=== PATIENT | male | born 1965 | race Caucasian/White ===

== ENCOUNTER 2018-02-18 11:19 | Emergency (ER) | payer MEDICAID, OTHER, SELFPAY ==
[~2018-02-18] VITALS: Ht 170.2 cm; Wt 144.0 kg
[2018-02-18 11:21] VITALS: BP 123/81
== END 2018-02-18 11:52 | disposition home or self-care (01) ==
LOC: ED 11:33
DX: K08.89 Other specified disorders of teeth and supporting structures (principal); F17.200 Nicotine dependence, unspecified, uncomplicated
CPT/HCPCS: 99283

== ENCOUNTER 2018-11-22 22:25 | Emergency (ER) | payer SELFPAY ==
[~2018-11-22] VITALS: Ht 170.2 cm; Wt 65.9 kg
[2018-11-22 23:38] VITALS: BP 135/96
== END 2018-11-22 23:40 | disposition home or self-care (01) ==
LOC: ED 23:26
DX: A51.0 Primary genital syphilis (principal); F17.210 Nicotine dependence, cigarettes, uncomplicated
CPT/HCPCS: 36415; 86592; 96372; 99283; J0561

== ENCOUNTER 2018-11-24 22:12 | Emergency (ER) | payer SELFPAY ==
[~2018-11-24] VITALS: Ht 170.2 cm; Wt 64.5 kg
[2018-11-24 22:13] VITALS: BP 124/90
== END 2018-11-24 22:27 | disposition left against medical advice (07) ==
LOC: ED 22:20
DX: Z53.21 Procedure and treatment not carried out due to patient leaving prior to being seen by health care provider (principal)

== ENCOUNTER 2018-11-25 22:43 | Emergency (ER) | payer SELFPAY ==
[~2018-11-25] VITALS: Ht 172.7 cm; Wt 61.6 kg
[2018-11-25 22:50] VITALS: BP 114/68
== END 2018-11-25 23:27 | disposition home or self-care (01) ==
LOC: ED 23:00
DX: A57 Chancroid (principal)
CPT/HCPCS: 96372; 99283; J0696

== ENCOUNTER 2019-06-20 20:18 | Emergency (ER) | payer SELFPAY ==
[~2019-06-20] VITALS: Ht 170.2 cm; Wt 65.2 kg
[2019-06-20 20:37] VITALS: BP 114/75
[2019-06-20] MEDS ORDERED: HYDROcodone/APAP 5/325 TABLET PO ONE (21:00)
[2019-06-20] MEDS ORDERED: HYDROcodone/APAP 5/325 TABLET ONE (21:04)
== END 2019-06-20 21:17 | disposition home or self-care (01) ==
LOC: ED 21:00
DX: G89.11 Acute pain due to trauma (principal); K08.89 Other specified disorders of teeth and supporting structures
CPT/HCPCS: 99283

== ENCOUNTER 2019-10-09 22:02 | Emergency (ER) | payer SELFPAY ==
[~2019-10-09] VITALS: Ht 167.6 cm; Wt 65.0 kg
[2019-10-09 22:07] VITALS: BP 126/87
--- NOTE | 2019-10-09 22:51 | NUR ---
TASK RN: PT. TO ROOM FROM LOBBY AT THIS TIME.
== END 2019-10-09 23:25 | disposition home or self-care (01) ==
LOC: ED 23:05
DX: K60.0 Acute anal fissure (principal); K62.5 Hemorrhage of anus and rectum; K62.89 Other specified diseases of anus and rectum
CPT/HCPCS: 99282

== ENCOUNTER 2019-11-29 21:33 | Emergency (ER) | payer OTHER ==
[~2019-11-29] VITALS: Ht 170.2 cm; Wt 63.1 kg
[2019-11-29 21:54] VITALS: BP 117/79
== END 2019-11-29 22:10 | disposition left against medical advice (07) ==
LOC: ED 21:59
DX: K92.1 Melena (principal); R10.2 Pelvic and perineal pain; Z53.21 Procedure and treatment not carried out due to patient leaving prior to being seen by health care provider

== ENCOUNTER 2020-01-21 20:27 | Emergency (ER) | payer MEDICAID ==
[~2020-01-21] VITALS: Ht 170.2 cm; Wt 62.3 kg
[2020-01-21 21:47] LABS: ALANINE AMINOTRANSFERASE 33 U/L (12-78); ALBUMIN 3.2 g/dL (3.4-5.0); ANION GAP 3 mmol/L (5-15); CALCIUM 9.2 mg/dL (8.5-10.1); CHLORIDE 103 mmol/L (98-107); CREATININE 1.04 mg/dL (0.7-1.3)
[2020-01-21 21:48] LABS: BASOPHILS % (AUTO) 0 % (0-1); EOSINOPHILS % (AUTO) 1 % (1-7); LYMPHOCYTES % (AUTO) 37 % (22-44); MEAN CORPUSCULAR HEMOGLOBIN 31.4 pg (27.5-34.5); MEAN CORPUSCULAR HGB CONC 33.9 g/dL (33.2-36.2); MEAN PLATELET VOLUME 7.8 fL (7.4-10.4); MONOCYTES % (AUTO) 13 % (2-9); NEUTROPHILS % (AUTO) 48 % (42-75); PLATELET COUNT 292 x10^3/uL (130-400); RED BLOOD COUNT 5.01 x10^6/uL (4.38-5.82); RED CELL DISTRIBUTION WIDTH 13.1 % (9.4-14.8)
[2020-01-21 21:50] LABS: ALKALINE PHOSPHATASE 107 U/L (45-117); BILIRUBIN,TOTAL 0.2 mg/dL (0.2-1.0); TOTAL PROTEIN 7.9 g/dL (6.4-8.2)
[2020-01-21 21:57] LABS: MD NO
--- NOTE | 2020-01-21 22:20 | NUR ---
PT COMES IN WITH C/O GENERALIZED WEAKNESS AND COUGH X1 DAYS. STATES THAT IT STARTED YESTERDAY. PT DENIES ANY OTHER COMPLAINTS AT THIS TIME. WILL CON'T TO MONITOR
[2020-01-21 22:21] VITALS: BP 124/83
--- NOTE | 2020-01-21 23:23 | NUR ---
PATIENT CENTERED CARE SPECIALIST WENT BACK TO THE ROOM TO CHECK ON PATIENT AND NOTED NOT TO BE IN THERE. PT MD TATYANA AWARE
== END 2020-01-21 23:25 | disposition left against medical advice (07) ==
LOC: ED 22:42
DX: U07.1 COVID-19 (principal); J15.9 Unspecified bacterial pneumonia; R06.02 Shortness of breath; F17.210 Nicotine dependence, cigarettes, uncomplicated
CPT/HCPCS: 36415; 71045; 80053; 85025; 87635; 99284; 99406